=== PATIENT | male | born 1995 | race Hispanic/Latino ===

== ENCOUNTER 2022-10-10 10:15 | Emergency (ER) | payer OTHER ==
[~2022-10-10] VITALS: Ht 170.2 cm; Wt 68.0 kg
[2022-10-10 10:20] VITALS: BP 139/82
[2022-10-10] MEDS ORDERED: CYCL5TAB PO (10:23)
[2022-10-10] MEDS ORDERED: KETO10TA2 PO (10:23)
== END 2022-10-10 10:36 | disposition home or self-care (01) ==
LOC: EDH 10:15
DX: Z04.1 Encounter for examination and observation following transport accident (principal); M62.838 Other muscle spasm; V89.2XXA Person injured in unspecified motor-vehicle accident, traffic, initial encounter; Y93.89 Activity, other specified; Y92.89 Other specified places as the place of occurrence of the external cause; Y99.8 Other external cause status